=== PATIENT | female | born 1980 | race Two or more races ===

== ENCOUNTER 2022-10-30 13:33 | Emergency (ER) | payer OTHER ==
[~2022-10-30] VITALS: Ht 162.6 cm; Wt 84.1 kg
[2022-10-30 13:34] VITALS: TEMP 99
[2022-10-30] MEDS ORDERED: KETOROLAC TROMETHAMINE 60 MG/2 ML VIAL IM ONE (13:45)
[2022-10-30] MEDS ORDERED: METHOCARBAMOL 500 MG TABLET PO ONE (13:45)
[2022-10-30] MEDS ORDERED: DIAZEPAM 5 MG TABLET PO ONE (13:45)
[2022-10-30] MEDS ORDERED: IBUP-1492 PO (14:22)
[2022-10-30] MEDS ORDERED: METH-812 PO (14:23)
[2022-10-30] MEDS ORDERED: PERCT PO (14:23)
[2022-10-30 14:33] VITALS: BP 132/73; PULSE 84; RESP 20
== END 2022-10-30 14:35 | disposition home or self-care (01) ==
LOC: EMS 13:57
DX: S29.012A Strain of muscle and tendon of back wall of thorax, initial encounter (principal); M75.101 Unspecified rotator cuff tear or rupture of right shoulder, not specified as traumatic; X50.0XXA Overexertion from strenuous movement or load, initial encounter; Y93.89 Activity, other specified; Y92.89 Other specified places as the place of occurrence of the external cause; Y99.8 Other external cause status
CPT/HCPCS: 99283; 96372; J1885